=== PATIENT | male | born 1970 | race Caucasian/White ===

== ENCOUNTER 2017-06-29 11:02 | Emergency (ER) | payer OTHER ==
[~2017-06-29] VITALS: Ht 180.3 cm; Wt 85.0 kg
[~2017-06-29 11:02] MED LIST: CLR10 PO
[2017-06-29 11:09] VITALS: TEMP 36.4; Ht 180.3 cm; Wt 85.0 kg
[2017-06-29] MEDS ORDERED: HYDR-5688 PO (12:57)
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
[2017-06-29 13:11] VITALS: BP 124/83; PULSE 56; O2SAT 100
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
== END 2017-06-29 13:13 | disposition home or self-care (01) ==
LOC: C.EDB 11:04 → C.EDD 13:13
DX: S22.43XA Multiple fractures of ribs, bilateral, initial encounter for closed fracture (principal); V29.3XXA Motorcycle rider (driver) (passenger) injured in unspecified nontraffic accident, initial encounter; Y93.89 Activity, other specified